=== PATIENT | female | born 1985 | race American Indian/Alaskan Native ===

== ENCOUNTER 2016-12-02 10:04 | Outpatient (CLI) | payer MEDICAID, OTHER ==
[2016-12-02 11:54] VITALS: BP 108/71
== END 2016-12-02 12:08 | disposition home or self-care (01) ==
LOC: TRG 10:04
PROVIDERS: ATTEND Obstetrics & Gynecology
DX: O47.1 False labor at or after 37 completed weeks of gestation (principal); Z3A.39 39 weeks gestation of pregnancy
CPT/HCPCS: 59025

== ENCOUNTER 2016-12-07 18:49 | Outpatient (CLI) | payer MEDICAID ==
[2016-12-07 19:07] VITALS: BP 133/79
== END 2016-12-07 20:55 | disposition home or self-care (01) ==
LOC: TRG 18:49
PROVIDERS: ATTEND Obstetrics & Gynecology
DX: O47.1 False labor at or after 37 completed weeks of gestation (principal); Z3A.39 39 weeks gestation of pregnancy

== ENCOUNTER 2016-12-07 23:10 | Inpatient (IN) | payer MEDICAID ==
[2016-12-07] MEDS ORDERED: POLYCILLIN/NS 2 GM/100 ML 2 GM/100 ML BAG IV ONE (23:37)
[2016-12-08 00:17] LABS: Basophils % (Auto) 0.7 % (0.0-1.8); Eosinophils % (Auto) 0.4 % (0.0-4.3); Hematocrit 32.2 % (30.3-42.9); Hemoglobin 10.1 gm/dl (10.1-14.3); Mean Corpuscular HGB Conc 31 % (30-34); Mean Corpuscular Hemoglobin 24 pg (28-32); Mean Corpuscular Volume 78 fl (79-97); Platelet Count 330 K/mm3 (140-440); Red Blood Count 4.16 M/mm3 (3.65-5.03); Red Cell Distribution Width 16.7 % (13.2-15.2); White Blood Count 13.5 K/mm3 (4.5-11.0)
[2016-12-08] MEDS ORDERED: ePHEDrine SULFATE ONE (00:26)
[2016-12-08] MEDS: LACTATED RINGERS 1,000 ML IV SCH ×3 (00:28→02:44)
[2016-12-08] MEDS ORDERED: NARCAN 2 MG/2 ML IV PRN (01:02)
[2016-12-08] MEDS ORDERED: ePHEDrine SULFATE IV PRN (01:02)
--- NOTE | 2016-12-08 01:02 | Anesthesia Consultation ---
Anesthesia Consult and Med Hx Date of service: 12/08/16 - Airway Anesthetic Teeth Evaluation: Good ROM Head & Neck: Adequate Mental/Hyoid Distance: Adequate Intubation Access Assessment: Possibly Difficult - Pre-Operative Health Status ASA Pre-Surgery Classification: ASA3, Emergency Proposed Anesthetic Plan: Epidural, Spinal - Pulmonary Hx Asthma: No COPD: No Hx Pneumonia: No - Cardiovascular System Hx Hypertension: No - Central Nervous System Hx Seizures: No Hx Psychiatric Problems: No - Endocrine Hx Renal Disease: No Hx End Stage Renal Disease: No Hx Hypothyroidism: No Hx Hyperthyroidism: No - Hematic Hx Anemia: No Hx Sickle Cell Disease: No - Other Systems Hx Alcohol Use: No Hx Obesity: Yes (morbid)
[2016-12-08] MEDS ORDERED: PITOCin/NS 20 UNIT/1000ML DRIP 20,000 MILLIUNITS/1,000 ML BAG IV ONE (01:59)
[2016-12-08] MEDS ORDERED: POLYCILLIN/NS 1 GM/50 ML 1 GM/50 ML BAG IV SCH (02:00)
[2016-12-08] MEDS ORDERED: fentaNYL-BUPIV 2 MCG/ML-0.125% 200 MCG/100 ML BAG EPIDURAL SCH (02:00)
[2016-12-08] MEDS ORDERED: PITOCin/NS 20 UNIT/1000ML DRIP IV ONE (02:00)
[2016-12-08] MEDS ORDERED: XYLOCAINE MPF 2% ONE (02:50)
[2016-12-08] MEDS ORDERED: METHERGINE IM ONE (03:54)
--- NOTE | 2016-12-08 04:03 | History and Physical Report ---
History of Present Illness Date of examination: 12/08/16 Date of admission: 12/07/16 23:26 Chief complaint: I'm in labor History of present illness: Patient is a 31 year old who presents in active labor with an EDC of . The patient is seen at [facility] for her care, however, records are not available at this time. Per the patient she has had an uncomplicated course. Past History Past Medical History: no pertinent history Past Surgical History: no surgical history - Obstetrical History Expected Date of Delivery: 12/09/16 Actual Gestation: 39 Week(s) 6 Day(s) : 3 Medications and Allergies Allergies Allergy/AdvReac Type Severity Reaction Status Date / Time No Known Allergies Allergy Verified 12/07/16 23:17 Home Medications Medication Instructions Recorded Confirmed Last Taken Type Ondansetron [Zofran] 4 mg PO Q6HR PRN #12 tablet 02/03/13 09/20/13 Unknown Rx Pnv95/Ferrous Fumarate/FA 1 each PO QDAY #30 tablet 02/03/13 09/20/13 09/19/13 07:00 Rx [ Vitamins] 1 tab HYDROcodone/APAP 5-325 [[place] 2 each PO Q6H PRN #20 tablet 09/21/13 Unknown Rx 5-325 mg TAB] Ibuprofen [Motrin 600 MG tab] 600 mg PO Q6H PRN #30 tablet 09/21/13 Unknown Rx Active Meds: Active Medications Lactated Ringer's (Lactated Ringers) 1,000 mls @ 125 mls/hr IV DIRECT GABBIE Last Admin: 12/08/16 02:44 Dose: 125 mls/hr Ampicillin Sodium (Polycillin/Ns 1 Gm/50 Ml) 1 gm in 50 mls @ 100 mls/hr IV Q4HR GABBIE PRN Reason: Protocol Last Admin: 12/08/16 03:32 Dose: 100 mls/hr Fentanyl/Bupivacaine/Sodium Chlor (Fentanyl-Bupiv 2 Mcg/Ml-0.125%) 200 mcg in 100 mls @ 12 mls/hr EPIDURAL TITR GABBIE PRN Reason: Protocol Last Admin: 12/08/16 02:44 Dose: 12 mls/hr Review of Systems All systems: negative Genitourinary: contractions - Vital Signs Vital signs: Vital Signs Pulse BP Pulse Ox 97 H 137/83 98 10/07/17 23:24 12/07/16 23:24 12/07/16 23:24 Temp Pulse Resp BP Pulse Ox 116 H 120/59 97 12/08/16 03:52 12/08/16 03:52 12/08/16 03:22 - Physical Exam Breasts: Positive: deferred Cardiovascular: Regular rate, Normal S1, Normal S2 Lungs: Positive: Clear to auscultation Abdomen: Positive: normal appearance, soft, normal bowel sounds Genitourinary (Female): Positive: normal external genitalia, normal perenium Vagina: Positive: normal moisture Uterus: Positive: enlarged - Obstetrical Cervical Dilatation: 7 Cervical Effacement Percentage: 90 station: -2 Uterine Contraction Pattern: Regular Results Result Diagrams: 12/07/16 23:45 Abnormal lab results 12/07/16 Range/Units 23:45 WBC 13.5 H (4.5-11.0) K/mm3 MCV 78 L (79-97) fl MCH 24 L (28-32) pg RDW 16.7 H (13.2-15.2) % [place] # 1.0 H (0.0-0.8) K/mm3 Seg Neutrophils % 75.4 H (40.0-70.0) % Seg Neutrophils # 10.2 H (1.8-7.7) K/mm3 All other labs normal. Assessment and Plan IUP at 39.6 in active labor. Admit for labor. Treat for unknown GBS. Anticipate .
--- NOTE | 2016-12-08 04:15 | Procedure Note ---
OB Delivery Note - Delivery Date of Delivery: 12/08/16 Surgeon: OMER HOOK Estimated blood loss: 300cc - Vaginal Delivery presentation: vertex Delivery position: OA Intrapartum events: none Delivery induction: none Delivery monitor: external FHT, external uterine Route of delivery: Delivery placenta: spontaneous Delivery cord: 3 umbilical vessels Episiotomy: none Delivery laceration: none Anesthesia: epidural Delivery comments: Viable female delivered over intact perineum with loose nuchal cord easily reduced. Her weight 7 lbs. 5 oz. 3308 g. Apgars 8 and 9. The infant was placed on the maternal abdomen. She has spontaneous cry. The cord was clamped and cut when it was finished pulsating. The placenta was delivered spontaneously and intact. There was a small vaginal laceration that was hemostatic so was not repaired. There was excellent hemostasis. The patient tolerated the procedure well. - A at 1 minute: 8 at 5 minutes: 9 Infant Gender: Female
[2016-12-08] MEDS ORDERED: PHENERGAN PO PRN (05:11)
[2016-12-08] MEDS ORDERED: BENADRYL PO PRN (05:11)
[2016-12-08] MEDS ORDERED: PHENERGAN PR PRN (05:11)
[2016-12-08] MEDS ORDERED: ZOFRAN IV PRN (05:11)
[2016-12-08] MEDS ORDERED: TYLENOL PO PRN (05:11)
[2016-12-08] MEDS ORDERED: SODIUM CHLORIDE FLUSH SYRINGE 10 ML IV NR (05:11)
[2016-12-08] MEDS ORDERED: TUCKS PAD TP PRN (05:11)
[2016-12-08] MEDS ORDERED: DULCOLAX PR PRN (05:11)
[2016-12-08] MEDS ORDERED: MILK OF MAGNESIA PO PRN (05:11)
[2016-12-08] MEDS ORDERED: LANSINOH TP PRN (05:11)
[2016-12-08] MEDS: MOTRIN PO SCH ×3 (06:46→22:20)
[2016-12-08] MEDS ORDERED: PITOCin/NS 20 UNIT/1000ML DRIP 20 UNITS/1,000 ML BAG IV SCH (07:00)
[2016-12-08] MEDS: NORCO 5/325 PO PRN ×2 (08:43→15:18)
[2016-12-08] MEDS: COLACE PO SCH ×2 (08:45→22:19)
[2016-12-08] MEDS: PRENATAL VITAMIN PO SCH (08:45)
[2016-12-08 17:02] LABS: Hemoglobin 8.4 gm/dl (10.1-14.3)
--- NOTE | 2016-12-09 08:43 | Progress Note ---
Assessment and Plan A/P PPD#1 s/p no complaints ambulating well tolerating diet pain controlled bonding with baby ( female) O+ no rhogam indicated consider d/c home tomorrow Subjective - Subjective Date of service: 12/09/16 Principal diagnosis: Patient reports: appetite normal, voiding normally, pain well controlled, flatus , ambulating normally : doing well Objective - Vital Signs Latest vital signs: Vital Signs Temp Pulse Resp BP BP Pulse Ox 12/09/16 02:25 98.6 F 71 18 131/68 12/08/16 23:20 18 12/08/16 22:20 16 12/08/16 19:55 98.6 F 68 16 101/81 12/08/16 16:00 98.0 F 87 18 139/73 12/08/16 12:16 98.5 F 94 H 20 121/77 99 12/08/16 08:43 20 Intake and Output 12/08/16 12/09/16 12/09/16 23:59 07:59 15:59 Intake Total 120 Balance 120 Intake: Oral 120 Other: Total, Intake Amount 120 # Voids Void 1 - Exam Breasts: Present: normal Cardiovascular: Present: Regular rate, Normal S1 Lungs: Present: Clear to auscultation, Normal air movement Abdomen: Present: normal appearance, soft, normal bowel sounds Vulva: both: normal Uterus: Present: normal, firm, fundal height below umbilicus. Absent: bogginess , tenderness Extremities: Present: normal Deep Tendon Reflex Grade: Normal +2 - Labs Labs: Abnormal lab results 12/08/16 Range/Units 16:11 Hgb 8.4 L (10.1-14.3) gm/dl Hct 26.0 L D (30.3-42.9) %
[2016-12-09] MEDS: MOTRIN PO SCH ×3 (09:00→21:05)
[2016-12-09] MEDS: NORCO 5/325 PO PRN ×2 (14:34→21:05)
[2016-12-09] MEDS: PRENATAL VITAMIN PO SCH (16:05)
--- NOTE | 2016-12-09 16:06 | Progress Note ---
Subjective Date of service: 12/09/16 Principal diagnosis: Interval history: 1st day after normal vaginal delivery. Patient is in the bed, comfortable. Pain is well controlled with pain meds. Ambulated well. No residual neurological deficit. No anesthesia complications Objective - Constitutional Vitals: Vital Signs - 12hr 12/09/16 09:00 Temperature 97.9 F Pulse Rate 94 H Respiratory 18 Rate Blood Pressure 132/66 O2 Sat by Pulse 99 Oximetry - Labs CBC & Chem 7: 12/08/16 16:11 Labs: Abnormal lab results 12/08/16 Range/Units 16:11 Hgb 8.4 L (10.1-14.3) gm/dl Hct 26.0 L D (30.3-42.9) %
[2016-12-09] MEDS ORDERED: ANUCORT-HC PR PRN (18:17)
--- NOTE | 2016-12-09 18:23 | Discharge Summary ---
Providers - Providers Date of Admission: 12/07/16 23:26 Date of discharge: 12/10/16 Attending physician: ADRIENNE GARCÍA Primary care physician: ADRIENNE GARCÍA Hospitalization Reason for admission: active labor, IUP at term Delivery: Episiotomy: none Laceration: vaginal side wall (hemostatic) Other procedures: none complications: none Discharge diagnosis: IUP at term delivered [place] baby: female Hospital course: Patient did well PP. had hemorrhoids. Rx anucort. f/u in 4 weeks Condition at discharge: Good Disposition: DC-01 TO HOME OR SELFCARE Plan - Discharge Medications Prescriptions: Ferrous Sulfate [Feosol 325 MG tab] 325 mg PO BID #30 tablet Ibuprofen [Motrin] 600 mg PO Q8H PRN #30 tablet PRN Reason: Pain oxyCODONE /ACETAMINOPHEN [Percocet 5/325] 1 tab PO Q6HR PRN #30 tablet PRN Reason: Pain - Provider Discharge Summary Activity: routine, no sex for 6 weeks, no heavy lifting 4 weeks, no strenuous exercise Diet: routine Instructions: routine Additional instructions: [] Smoking cessation referral if applicable(refer to patient education folder for contact #) [] Refer to [facility] Booklet Call your doctor immediately for: * Fever > 100.5 * Heavy vaginal bleeding ( >1 pad per hour) * Severe persistent headache * Shortness of breath * Reddened, hot, painful area to leg or breast * Drainage or odor from incision. * Keep incision clean and dry at all times and follow doctor's instructions regarding bathing/showering - Follow up plan Follow up: ADRIENNE GARCÍA MD [Primary Care Provider] - 01/06/17
[2016-12-09] MEDS: COLACE PO SCH (21:05)
[2016-12-10] MEDS: MOTRIN PO SCH ×2 (06:11→12:38)
[2016-12-10] MEDS: COLACE PO SCH (10:27)
[2016-12-10] MEDS: PRENATAL VITAMIN PO SCH (10:28)
[2016-12-10] MEDS: NORCO 5/325 PO PRN (11:18)
[2016-12-10 18:28] VITALS: BP 126/79
== END 2016-12-10 16:15 | disposition home or self-care (01) | DRG 775 ==
LOC: TRG 23:10 → LD 23:26 → OB 12-08 05:32
PROVIDERS: ADMIT Obstetrics & Gynecology; ATTEND Obstetrics & Gynecology
PROC: 10E0XZZ Delivery of Products of Conception, External Approach (ICD-10-PCS; principal; 2016-12-08)
PROC: 3E0R3BZ Introduction of Anesthetic Agent into Spinal Canal, Percutaneous Approach (ICD-10-PCS; principal; 2016-12-08)
PROC: 00HU33Z Insertion of Infusion Device into Spinal Canal, Percutaneous Approach (ICD-10-PCS; 2016-12-08)
DX: O69.81X0 Labor and delivery complicated by cord around neck, without compression, not applicable or unspecified (principal); O71.4 Obstetric high vaginal laceration alone; Z68.41 Body mass index [BMI] 40.0-44.9, adult; Z3A.39 39 weeks gestation of pregnancy; Z37.0 Single live birth; O99.214 Obesity complicating childbirth; E66.01 Morbid (severe) obesity due to excess calories
CPT/HCPCS: 36415; 85014; 85018; 85025; 86592; 86850; 86900; 86901; 99211; G0463; J0290; J2210; J2590; J7120